=== PATIENT | female | born 1995 ===

== ENCOUNTER 2022-03-30 13:00 | Inpatient (IN) | payer OTHER ==
[~2022-03-30] VITALS: Ht 160 cm; Wt 72.6 kg
[2022-04-07] MEDS ORDERED: VALTREX1000 MG PO (06:28)
[2022-04-07] MEDS ORDERED: PRENATAL CAPLE1 EAC1 PO (06:28)
== END 2022-04-09 14:06 | disposition home or self-care (01) | DRG 807 ==
LOC: LDR 04-07 05:21 → OB/GYN 04-07 13:00
PROVIDERS: ADMIT Specialist; ATTEND Specialist
PROC: 10E0XZZ Delivery of Products of Conception, External Approach (ICD-10-PCS; principal; 2022-04-07)
PROC: 0W8NXZZ Division of Female Perineum, External Approach (ICD-10-PCS; 2022-04-07)
PROC: 4A1HXCZ Monitoring of Products of Conception, Cardiac Rate, External Approach (ICD-10-PCS; 2022-04-07)
DX: O80 Encounter for full-term uncomplicated delivery (principal); Z37.0 Single live birth; Z3A.40 40 weeks gestation of pregnancy; Z20.822 Contact with and (suspected) exposure to COVID-19